=== PATIENT | male | born 1975 | race Caucasian/White ===

== ENCOUNTER 2017-09-02 17:16 | Inpatient (IN) | payer MEDICARE, MEDICAID ==
[~2017-09-02] VITALS: Ht 172.7 cm; Wt 76.5 kg
[~2017-09-02 17:16] MED LIST: DIVA500T35 PO; FERR-89 PO; RISP4 PO
[2017-09-02 17:38] LABS: BASOPHILS % (AUTO) 0.6 % (0.0-2.0); HEMATOCRIT 39.8 % (41-53); HEMOGLOBIN 13.7 g/dL (13.5-17.5); LYMPHOCYTES # (AUTO) 2.8 K/uL (1.0-4.8); LYMPHOCYTES % (AUTO) 37.4 % (22.0-44.0); MEAN CORPUSCULAR HEMOGLOBIN 29.2 pg (26.0-34.0); MEAN CORPUSCULAR HGB CONC 34.4 G/dL (31.0-37.0); MEAN CORPUSCULAR VOLUME 85 fL (80-100); MONOCYTES # (AUTO) 0.7 K/uL (0.1-1.0); MONOCYTES % (AUTO) 9.4 % (2.0-9.0); NEUTROPHILS # (AUTO) 3.8 K/uL (1.8-7.7); NEUTROPHILS % (AUTO) 51.6 % (40.0-70.0); PLATELET COUNT (AUTO) 330 K/uL (150-450); RED BLOOD CELL COUNT(AUTO) 4.69 MIL/uL (4.50-5.90); RED CELL DISTRIBUTION WIDTH 13.1 % (11.5-14.5); WHITE BLOOD COUNT (AUTO) 7.5 K/uL (4.5-11.0)
[2017-09-02] MEDS ORDERED: DiphenhydrAMINE HCL 50 MG/ML VIAL IM ONE (17:45)
[2017-09-02] MEDS ORDERED: HALOPERIDOL LACTATE 5 MG/ML VIAL IM ONE (17:45)
[2017-09-02] MEDS ORDERED: LORazepam 2 MG/ML VIAL IM ONE (17:45)
[2017-09-02 17:53] LABS: ANION GAP 11 mmol/L (8-16); CALCIUM, TOTAL 8.8 mg/dL (8.8-10.5); CARBON DIOXIDE 29 mmol/L (22-29); CHLORIDE 100 mmol/L (98-107); CREATININE 1.15 mg/dL (0.60-1.30); GLOMERULAR FILTR. RATE CALC > 60 mL/min (>60); POTASSIUM 3.1 mmol/L (3.5-5.1); SODIUM SERUM 140 mmol/L (136-145); UREA NITROGEN, BLOOD 17 mg/dL (7-18)
[2017-09-02 17:58] LABS: ALANINE AMINOTRANSFERASE 32 U/L (12-78); ALBUMIN 4.2 g/dL (3.4-5.0); ASPARTATE AMINOTRANSFERASE 28 U/L (15-37); BILIRUBIN,TOTAL 0.4 mg/dL (0.1-1.0); TOTAL PROTEIN, SERUM 8.2 g/dL (6.4-8.2)
[2017-09-02] MEDS ORDERED: ZOLPIDEM TARTRATE 10 MG TABLET PO PRN (18:00)
[2017-09-02] MEDS ORDERED: HALOPERIDOL 5 MG TABLET PO PRN (18:00)
[2017-09-02] MEDS ORDERED: POTASSIUM CHLORIDE 20 MEQ ER TABLET PO ONE (19:15)
[2017-09-02 19:40] VITALS: BP 104/66
[2017-09-02] MEDS ORDERED: INFLUENZA VIRUS VACCINE QVS 2017-18 (3YR+)/PF 60 MCG/0.5 ML SYRINGE IM ONE (20:30)
[2017-09-03] MEDS: FERROUS SULFATE 325 MG EC TABLET PO SCH ×2 (06:26→17:06)
[2017-09-03 08:24] VITALS: BP 107/64
[2017-09-03 08:38] LABS: HEMOGLOBIN A1C 5.6 % (4.5-6.2)
[2017-09-03 09:28] LABS: CHOL/HDL RATIO 2.8 (4.2-7.3); POTASSIUM 3.9 mmol/L (3.5-5.1); THYROID STIMULATING HORMONE 1.1 uIU/mL (0.36-3.74)
[2017-09-03 16:00] VITALS: BP 110/66
[2017-09-03] MEDS: FluPHENAZine HCL 5 MG TABLET PO SCH (17:06)
[2017-09-03] MEDS: LORazepam 2 MG TABLET PO PRN (17:06)
[2017-09-03] MEDS ORDERED: ACETAMINOPHEN 325 MG TABLET PO PRN (20:00)
[2017-09-03] MEDS ORDERED: IBUPROFEN 400 MG TABLET PO PRN (20:00)
[2017-09-04] MEDS: FERROUS SULFATE 325 MG EC TABLET PO SCH ×2 (06:29→17:06)
[2017-09-04 06:45] VITALS: BP 106/64
[2017-09-04] MEDS ORDERED: FERROUS SULFATE 325 MG EC TABLET PO SCH (07:00)
[2017-09-04 08:06] LABS: HEMOGLOBIN A1C 5.4 % (4.5-6.2)
[2017-09-04 08:37] VITALS: BP 100/55
[2017-09-04 08:59] LABS: THYROID STIMULATING HORMONE 0.54 uIU/mL (0.36-3.74)
[2017-09-04 09:26] LABS: APPEARANCE,URINE TURBID (CLEAR); GLUCOSE, URINE (UA) NEGATIVE (NEGATIVE); KETONES,URINE 15 mg/dL (NEGATIVE); LEUKOCYTE ESTERASE ,URINE SMALL (NEGATIVE); OCCULT BLOOD,URINE NEGATIVE (NEGATIVE); PROTEIN,URINE NEGATIVE (NEGATIVE)
[2017-09-04 09:30] LABS: ADD UA MICROSCOPIC YES
[2017-09-04 09:32] LABS: RBC,URINE None Seen /HPF (0-2)
[2017-09-04 09:33] LABS: AMORPHOUS SEDIMENT,UR Many /LPF (None Seen); SQUAMOUS EPITHELIAL CELL,UR Few /LPF (None Seen)
[2017-09-04] MEDS: FluPHENAZine HCL 5 MG TABLET PO SCH ×3 (10:06→17:06)
[2017-09-04 16:11] VITALS: BP 107/68
[2017-09-04] MEDS: LORazepam 2 MG TABLET PO PRN (17:06)
[2017-09-05] MEDS: FERROUS SULFATE 325 MG EC TABLET PO SCH ×2 (06:35→16:46)
[2017-09-05 06:49] VITALS: BP 107/68
[2017-09-05 08:14] VITALS: BP 103/59
[2017-09-05] MEDS: FluPHENAZine HCL 5 MG TABLET PO SCH ×3 (10:19→16:46)
[2017-09-05 16:00] VITALS: BP 111/64
[2017-09-05] MEDS: LORazepam 2 MG TABLET PO PRN (16:46)
[2017-09-06 04:10] LABS: LYMPHS % FOR CD4 COUNT 33 % (Not Estab.)
[2017-09-06] MEDS: FERROUS SULFATE 325 MG EC TABLET PO SCH ×2 (06:54→16:45)
[2017-09-06 06:56] VITALS: BP 103/66
[2017-09-06] MEDS: LORazepam 2 MG TABLET PO PRN ×2 (08:15→16:45)
[2017-09-06] MEDS: FluPHENAZine HCL 5 MG TABLET PO SCH ×3 (08:15→16:45)
[2017-09-06 08:23] VITALS: BP 119/66
[2017-09-06 13:13] LABS: ABSOLUTE CD4 COUNT 856 /uL (359-1519); PERCENT CD4 CELLS 42.8 % (30.8-58.5)
[2017-09-06 16:00] VITALS: BP 128/86
[2017-09-07] MEDS: FERROUS SULFATE 325 MG EC TABLET PO SCH ×2 (06:37→16:36)
[2017-09-07 06:39] VITALS: BP 112/68
[2017-09-07 08:38] VITALS: BP 102/60
[2017-09-07] MEDS: LORazepam 2 MG TABLET PO PRN ×2 (08:47→16:36)
[2017-09-07] MEDS: FluPHENAZine HCL 5 MG TABLET PO SCH ×3 (08:47→16:36)
[2017-09-07 16:00] VITALS: BP 110/67
[2017-09-08] MEDS: FERROUS SULFATE 325 MG EC TABLET PO SCH ×2 (06:27→16:12)
[2017-09-08 06:30] VITALS: BP 99/68
[2017-09-08] MEDS: FluPHENAZine HCL 5 MG TABLET PO SCH ×3 (08:30→16:11)
[2017-09-08 09:29] VITALS: BP 98/65
[2017-09-08 10:09] LABS: GLUCOSE, URINE (UA) NEGATIVE (NEGATIVE); KETONES,URINE NEGATIVE (NEGATIVE); LEUKOCYTE ESTERASE ,URINE TRACE (NEGATIVE); OCCULT BLOOD,URINE NEGATIVE (NEGATIVE); PROTEIN,URINE NEGATIVE (NEGATIVE)
[2017-09-08 10:32] LABS: ADD UA MICROSCOPIC YES; AMORPHOUS SEDIMENT,UR Moderate /LPF (None Seen); APPEARANCE,URINE SLIGHTLY CLOUDY (CLEAR); RBC,URINE 0-2 /HPF (0-2)
[2017-09-08] MEDS: LORazepam 2 MG TABLET PO PRN (16:12)
[2017-09-08 16:22] VITALS: BP 109/63
[2017-09-09] MEDS: FERROUS SULFATE 325 MG EC TABLET PO SCH ×2 (06:38→16:23)
[2017-09-09 06:46] VITALS: BP 103/68
[2017-09-09] MEDS: FluPHENAZine HCL 5 MG TABLET PO SCH ×3 (09:21→16:23)
[2017-09-09] MEDS ORDERED: FLUP5 PO (15:33)
[2017-09-09 16:34] VITALS: BP 117/65
== END 2017-09-09 17:00 | disposition home or self-care (01) | DRG 885 ==
LOC: EMS 17:17 → B3A 18:47
PROVIDERS: ADMIT Psychiatry & Neurology Psychiatry; ATTEND Psychiatry & Neurology Psychiatry
DX: F20.0 Paranoid schizophrenia (principal); R45.851 Suicidal ideations; E83.51 Hypocalcemia; F19.20 Other psychoactive substance dependence, uncomplicated; Z28.21 Immunization not carried out because of patient refusal; Z59.0 Homelessness; Z88.8 Allergy status to other drugs, medicaments and biological substances; G47.00 Insomnia, unspecified; F41.9 Anxiety disorder, unspecified; E87.6 Hypokalemia; E78.5 Hyperlipidemia, unspecified; D64.9 Anemia, unspecified; Z56.0 Unemployment, unspecified
CPT/HCPCS: 80307; 83036; 84132; 84439; 84443; 86361; 87086; 90471; 96372; 99285; G0480; J1200; J1630

== ENCOUNTER 2019-02-11 10:03 | Inpatient (IN) | payer MEDICARE, MEDICAID ==
[~2019-02-11] VITALS: Ht 172.7 cm; Wt 71.7 kg
[~2019-02-11 10:03] MED LIST changes: -DIVA500T35 PO; +FLUP5 PO; -RISP4 PO
[2019-02-11] MEDS ORDERED: LORazepam 1 MG TABLET PO ONE (11:00)
[2019-02-11] MEDS ORDERED: HALOPERIDOL 5 MG TABLET PO ONE (11:00)
[2019-02-11] MEDS ORDERED: DiphenhydrAMINE HCL 25 MG CAPSULE PO ONE (11:00)
[2019-02-11 11:19] LABS: BASOPHILS % (AUTO) 0.8 % (0.0-2.0); EOSINOPHILS % (AUTO) 0.3 % (1.0-6.0); HEMATOCRIT 39.2 % (41-53); HEMOGLOBIN 13.3 g/dL (13.5-17.5); LYMPHOCYTES # (AUTO) 1.1 K/uL (1.0-4.8); LYMPHOCYTES % (AUTO) 16.8 % (22.0-44.0); MEAN CORPUSCULAR HEMOGLOBIN 27.8 pg (26.0-34.0); MEAN CORPUSCULAR HGB CONC 33.8 G/dL (31.0-37.0); MEAN CORPUSCULAR VOLUME 82 fL (80-100); MONOCYTES # (AUTO) 0.6 K/uL (0.1-1.0); MONOCYTES % (AUTO) 8.7 % (2.0-9.0); NEUTROPHILS # (AUTO) 4.7 K/uL (1.8-7.7); NEUTROPHILS % (AUTO) 73.4 % (40.0-70.0); PLATELET COUNT (AUTO) 307 K/uL (150-450); RED BLOOD CELL COUNT(AUTO) 4.78 MIL/uL (4.50-5.90); RED CELL DISTRIBUTION WIDTH 13.7 % (11.5-14.5)
[2019-02-11 11:27] LABS: ANION GAP 9 mmol/L (8-16); CALCIUM, TOTAL 9.2 mg/dL (8.8-10.5); CARBON DIOXIDE 27 mmol/L (22-29); CHLORIDE 102 mmol/L (98-107); CREATININE 0.88 mg/dL (0.60-1.30); GLOMERULAR FILTR. RATE CALC > 60 mL/min (>60); GLUCOSE,RANDOM 91 mg/dL (70-110); POTASSIUM 3.5 mmol/L (3.5-5.1); SODIUM SERUM 138 mmol/L (136-145); UREA NITROGEN, BLOOD 21 mg/dL (7-18)
[2019-02-11 11:31] LABS: ALANINE AMINOTRANSFERASE 30 U/L (12-78); ALBUMIN 3.9 g/dL (3.4-5.0); ALKALINE PHOSPHATASE 84 U/L (46-116); ASPARTATE AMINOTRANSFERASE 29 U/L (15-37); BILIRUBIN,TOTAL 0.4 mg/dL (0.1-1.0); TOTAL PROTEIN, SERUM 7.9 g/dL (6.4-8.2)
[2019-02-11] MEDS ORDERED: HALOPERIDOL 5 MG TABLET PO PRN (18:45)
[2019-02-11] MEDS ORDERED: ZOLPIDEM TARTRATE 10 MG TABLET PO PRN (18:45)
[2019-02-11 21:16] LABS: AMPHET/METH SCREEN,URINE NEGATIVE (NEGATIVE); BARBITURATE SCREEN, URINE NEGATIVE (NEGATIVE); BENZODIAZEPINES SCREEN,URINE NEGATIVE (NEGATIVE); CANNABINOID SCREEN,URINE NEGATIVE (NEGATIVE); COCAINE SCREEN,URINE NEGATIVE (NEGATIVE); METHADONE SCREEN, URINE NEGATIVE (NEGATIVE); OPIATE SCREEN,URINE NEGATIVE (NEGATIVE)
[2019-02-11 21:20] LABS: PHENCYCLIDINE SCREEN,URINE NEGATIVE (NEGATIVE)
[2019-02-11] MEDS ORDERED: PNEUMOCOCCAL VACCINE POLYVALENT 0.5 ML VIAL [PPSV23] IM ONE (22:30)
[2019-02-12] MEDS: FERROUS SULFATE 325 MG EC TABLET PO SCH ×2 (06:40→16:18)
[2019-02-12 06:44] VITALS: BP_SYST 108; BP_SYST 84; BP_DIAS 45; BP_DIAS 65
[2019-02-12 08:10] VITALS: BP 99/47
[2019-02-12] MEDS: FluPHENAZine HCL 5 MG TABLET PO SCH ×2 (12:09→16:18)
[2019-02-12 16:02] VITALS: BP 119/80
[2019-02-12] MEDS: LORazepam 2 MG TABLET PO PRN (16:18)
[2019-02-13 06:39] VITALS: BP 114/78
[2019-02-13] MEDS: FERROUS SULFATE 325 MG EC TABLET PO SCH ×2 (06:56→16:43)
[2019-02-13 07:48] LABS: HEMOGLOBIN A1C 5.8 % (4.5-6.2)
[2019-02-13 08:17] LABS: CHOL/HDL RATIO 2.8 (4.2-7.3); FREE T4 (FREE THYROXINE) 1.14 ng/dL (0.76-1.46); MAGNESIUM 1.9 mg/dL (1.80-2.40); THYROID STIMULATING HORMONE 0.69 uIU/mL (0.36-3.74)
[2019-02-13] MEDS: FluPHENAZine HCL 5 MG TABLET PO SCH ×3 (09:09→16:43)
[2019-02-13] MEDS: LORazepam 2 MG TABLET PO PRN (16:43)
[2019-02-13 16:50] VITALS: BP 113/68
[2019-02-14 05:10] LABS: HIV 1-2 SCREEN 4TH GEN W/RFLX Non Reactive (Non Reactive)
[2019-02-14] MEDS: FERROUS SULFATE 325 MG EC TABLET PO SCH ×2 (06:25→16:51)
[2019-02-14] MEDS: FluPHENAZine HCL 5 MG TABLET PO SCH ×3 (09:27→16:51)
[2019-02-14 16:19] VITALS: BP 112/80
[2019-02-14] MEDS: LORazepam 2 MG TABLET PO PRN (16:51)
[2019-02-15] MEDS: FERROUS SULFATE 325 MG EC TABLET PO SCH ×2 (06:17→16:46)
[2019-02-15 06:35] VITALS: BP 103/61
[2019-02-15] MEDS: FluPHENAZine HCL 5 MG TABLET PO SCH ×3 (08:55→16:46)
[2019-02-15] MEDS: LORazepam 2 MG TABLET PO PRN ×2 (10:51→16:46)
[2019-02-15 16:20] VITALS: BP 105/61
[2019-02-16] MEDS: FERROUS SULFATE 325 MG EC TABLET PO SCH ×2 (06:39→16:20)
[2019-02-16 06:56] VITALS: BP 105/70
[2019-02-16 08:11] VITALS: BP 102/57
[2019-02-16] MEDS: FluPHENAZine HCL 5 MG TABLET PO SCH ×3 (08:45→16:20)
[2019-02-16 16:14] VITALS: BP 107/82
[2019-02-16] MEDS: LORazepam 2 MG TABLET PO PRN (16:20)
[2019-02-17 03:20] VITALS: BP 110/62
[2019-02-17] MEDS: FERROUS SULFATE 325 MG EC TABLET PO SCH ×2 (06:20→16:36)
[2019-02-17 07:53] LABS: ALANINE AMINOTRANSFERASE 22 U/L (12-78); ALBUMIN 3.6 g/dL (3.4-5.0); ALKALINE PHOSPHATASE 71 U/L (46-116); ANION GAP 5 mmol/L (8-16); ASPARTATE AMINOTRANSFERASE 22 U/L (15-37); BILIRUBIN,TOTAL 0.3 mg/dL (0.1-1.0); CALCIUM, TOTAL 8.7 mg/dL (8.8-10.5); CARBON DIOXIDE 29 mmol/L (22-29); CHLORIDE 103 mmol/L (98-107); CREATINE KINASE, TOTAL ONLY 75 U/L (39-308); CREATININE 0.86 mg/dL (0.60-1.30); GLOMERULAR FILTR. RATE CALC > 60 mL/min (>60); GLUCOSE,RANDOM 82 mg/dL (70-110); POTASSIUM 4.4 mmol/L (3.5-5.1); SODIUM SERUM 137 mmol/L (136-145); TOTAL PROTEIN, SERUM 7.5 g/dL (6.4-8.2); UREA NITROGEN, BLOOD 16 mg/dL (7-18)
[2019-02-17 08:28] VITALS: BP 134/86
[2019-02-17] MEDS: FluPHENAZine HCL 5 MG TABLET PO SCH ×3 (08:34→16:36)
[2019-02-17] MEDS ORDERED: BISACODYL 5 MG EC TABLET PO PRN (13:30)
[2019-02-17 16:00] VITALS: BP 105/69
[2019-02-17] MEDS: LORazepam 2 MG TABLET PO PRN (16:36)
[2019-02-18 03:03] VITALS: BP 110/66
[2019-02-18] MEDS: FERROUS SULFATE 325 MG EC TABLET PO SCH ×2 (06:38→16:20)
[2019-02-18] MEDS: FluPHENAZine HCL 5 MG TABLET PO SCH ×3 (08:15→16:20)
[2019-02-18 08:16] VITALS: BP 104/60
[2019-02-18 16:00] VITALS: BP 123/75
[2019-02-18] MEDS: LORazepam 2 MG TABLET PO PRN (16:20)
[2019-02-19 04:40] VITALS: BP 116/67
[2019-02-19] MEDS: FERROUS SULFATE 325 MG EC TABLET PO SCH ×2 (06:46→16:17)
[2019-02-19] MEDS: FluPHENAZine HCL 5 MG TABLET PO SCH ×3 (08:22→16:17)
[2019-02-19] MEDS: LORazepam 2 MG TABLET PO PRN ×2 (08:22→16:17)
[2019-02-19 16:09] VITALS: BP 120/72
[2019-02-20 05:24] VITALS: BP 118/68
[2019-02-20] MEDS: FERROUS SULFATE 325 MG EC TABLET PO SCH ×2 (06:06→16:40)
[2019-02-20] MEDS: FluPHENAZine HCL 5 MG TABLET PO SCH ×3 (08:23→16:41)
[2019-02-20 08:34] VITALS: BP 112/66
[2019-02-20] MEDS: LORazepam 2 MG TABLET PO PRN ×2 (08:37→16:41)
[2019-02-20 16:09] VITALS: BP 116/70
[2019-02-21 05:54] VITALS: BP 121/76
[2019-02-21] MEDS: FERROUS SULFATE 325 MG EC TABLET PO SCH ×2 (06:23→16:44)
[2019-02-21] MEDS: FluPHENAZine HCL 5 MG TABLET PO SCH ×3 (08:19→16:44)
[2019-02-21 08:31] VITALS: BP 107/66
[2019-02-21] MEDS: LORazepam 2 MG TABLET PO PRN (16:44)
[2019-02-21 17:12] VITALS: BP 112/76
[2019-02-22 06:07] VITALS: BP 118/72
[2019-02-22] MEDS: FERROUS SULFATE 325 MG EC TABLET PO SCH (06:33)
[2019-02-22] MEDS: FluPHENAZine HCL 5 MG TABLET PO SCH ×2 (08:51→12:38)
[2019-02-22 09:43] VITALS: BP 100/69
== END 2019-02-22 14:30 | disposition home or self-care (01) | DRG 885 ==
LOC: EMS 10:07 → B3A 20:49
PROVIDERS: ADMIT Psychiatry & Neurology Psychiatry; ATTEND Psychiatry & Neurology Psychiatry
DX: F20.0 Paranoid schizophrenia (principal); B20 Human immunodeficiency virus [HIV] disease; F12.90 Cannabis use, unspecified, uncomplicated; D64.9 Anemia, unspecified; F39 Unspecified mood [affective] disorder; K59.00 Constipation, unspecified; N18.1 Chronic kidney disease, stage 1; E87.6 Hypokalemia; F15.90 Other stimulant use, unspecified, uncomplicated; Z59.0 Homelessness
CPT/HCPCS: 80074; 83036; 83735; 84439; 84443; 86361; 86592; 87389; 90732; G0480